=== PATIENT | male | born 1960 | race Caucasian/White ===

== ENCOUNTER → 2016-09-29 | Outpatient (CLI) | payer BC | LOC: C.PATHSPEC 11:57 | DX: D23.4 Other benign neoplasm of skin of scalp and neck (principal) ==

== ENCOUNTER → 2017-12-22 | Outpatient (CLI) | payer OTHER ==
[~2017-12-22] MED LIST: PERFLUTREN LIPID MICROSPHERE (DEFINITY) IV ONE
--- NOTE | 2017-12-22 15:50 | ECHOCARDIOGRAM REPORT ---
*NOTICE TO RECEIVING CONSTITUTION PARTY AGENCY This information is strictly Confidential and protected under [place] law. [place] law prohibits you from making any further disclosure of this information unless further disclosure is expressly permitted by the written consent of the person to whom it pertains or is authorized by law. A general authorization for the release of medical or other information is not sufficient for this purpose. Hospital accepts no responsibility if the information is made available to any other person, INCLUDING THE PATIENT. Interpretation Summary * Name: JOSE SOW Study Date: 12/22/2017 12:47 PM BP: 128/70 mmHg * Patient Location: [facility] HR: 68 * : 1960 (M/d/yyyy) Gender: Male Height: 70 in * Age: 57 yrs Ethnicity: [place] Weight: 190 lb * Ordering Physician: Brett Yanez * Referring Physician: Brett Yanez D.O. * Performed By: Zo Ge RDCS * * Reason For Study: COUGH, CARDIOMEGALY ON XRAY * BSA: 2.0 m2 * -- Conclusions -- * There is borderline concentric left ventricular hypertrophy. * Left ventricular systolic function is low normal. Procedure Details * A contrast injection of Definity was performed to improve assessment of LV function. * Contrast was injected into an intravenous site in the right arm. * One vial of Definity ultrasound contrast was diluted in normal saline to a total volume of 10 ml. A total of '1' ml of solution was administered during imaging. * Lot # [id number] of Definity utilized for procedure. * Expiration date OCTOBER 22. * The attending nurse who injected the contrast agent was ADRIEL BRYANT RN. Left Ventricle * The left ventricle is normal in size. * There is borderline concentric left ventricular hypertrophy. * Left ventricular systolic function is low normal. * Ejection Fraction = 50-55%. * The left ventricular wall motion is normal. Right Ventricle * The right ventricle is normal in size and function. * The right ventricular systolic function is normal as assessed by tricuspid annular plane systolic excursion (TAPSE) (normal >1.5 cm). Atria * The left atrial size is normal. * Right atrial size is normal. Mitral Valve * The mitral valve anatomy is normal. * Significant mitral regurgitation is absent. Tricuspid Valve * The tricuspid valve is not well visualized, but is grossly normal. * Significant tricuspid regurgitation is absent. Aortic Valve * The aortic valve is normal in structure and function. * No hemodynamically significant valvular aortic stenosis. * There is no significant aortic regurgitation. Great Vessels * The aortic root is normal size. Pericardium/Pleural * There is no pericardial effusion. MMode 2D Measurements and Calculations IVSd 1.2 cm IVSs 2.2 cm LVIDd 4.5 cm LVIDs 2.9 cm LVPWd 1.7 cm LVPWs 2.1 cm IVS/LVPW 0.72 FS 36.1 % EDV(Teich) 91.0 ml ESV(Teich) 31.0 ml EF(Teich) 65.9 % EDV(cubed) 89.3 ml ESV(cubed) 23.3 ml EF(cubed) 73.9 % % IVS thick 79.5 % % LVPW thick 25.8 % LV mass(C)d 256.5 grams LV mass(C)dI 125.6 grams/m\S\2 LV mass(C)s 282.1 grams LV mass(C)sI 138.1 grams/m\S\2 SV(Teich) 59.9 ml SI(Teich) 29.3 ml/m\S\2 SV(cubed) 66.0 ml SI(cubed) 32.3 ml/m\S\2 Ao root diam 3.7 cm Ao root area 10.6 cm\S\2 LA dimension 3.9 cm LA/Ao 1.1 LVAd ap2 29.5 cm\S\2 LVLd ap2 7.6 cm EDV(MOD-sp2) 93.2 ml EDV(sp2-el) 96.6 ml LVAs ap2 16.8 cm\S\2 LVLs ap2 6.2 cm ESV(MOD-sp2) 35.9 ml ESV(sp2-el) 38.4 ml EF(MOD-sp2) 61.5 % EF(sp2-el) 60.2 % SV(MOD-sp2) 57.3 ml SI(MOD-sp2) 28.1 ml/m\S\2 SV(sp2-el) 58.1 ml SI(sp2-el) 28.5 ml/m\S\2 Doppler Measurements and Calculations MV E max chana 77.5 cm/sec MV A max chana 64.7 cm/sec MV E/A 1.2 MV dec time 0.22 sec Ao V2 max 107.8 cm/sec Ao max PG 4.7 mmHg Ao max PG (full) 0.76 mmHg LV V1 max PG 3.9 mmHg LV V1 max 98.7 cm/sec
--- NOTE | 2017-12-23 13:03 | PULMONARY FUNCTION TEST ---
Spirometry shows a mild decrease in forced vital capacity and FEV1, with the normal FEV1/FVC ratio. This would suggest mild restriction. Repeat study done following bronchodilators showed no improvement in function. Advise clinical correlation. MTDD
== END | disposition home or self-care (01) ==
LOC: C.RC 11:15
DX: R05 Cough (principal); I51.7 Cardiomegaly

== ENCOUNTER 2018-10-03 09:04 | Inpatient (IN) ==
--- NOTE | 2018-09-18 09:35 | Anesthesiology Consultation ---
Date of Service September 18, 2018 Assessment & Plan (1) Encounter for pre-operative examination: Chart Review Chart Review: Acceptable Risk for Surgery and Patient seen in Pre Admission Testing Teaching & Discussion Pre-Anesthesia Teaching/Discussion Notes: Instructed NPO after midnight before surgery,except medications with 15 cc of water. Medication instructions provided according to the PAT guidelines. History Surgery Operation Date: 10/03/18 07:30 Proposed Procedures p Robotic Assisted Laparoscopic Radical Retropubic Prostatectomy, Possible Open, Possible Pelvic Lymph Node Dissection, Possible Suprapubic Tube Placement - Ranjit Vela MD Height/Weight Height: 5 ft 10 in Weight: 87.4 kg Allergies Allergy/AdvReac Type Severity Reaction Status Date / Time No Known Allergies Verified 09/12/18 10:00 Medications Home Medications Medication Instructions Recorded Confirmed Last Taken No Known Home Medications 09/12/18 09/12/18 Unknown Past Medical History Medical History Hiatal hernia SMALL PER 12/2017 CXR Prostate cancer DX 06/2018 Past Family History Family History Mother No problems noted. Father Skin cancer Brother Family history of thyroid cancer Brother No problems noted. Past Surgical History Surgical History History of appendectomy History of colonoscopy History of wisdom tooth extraction Past Anesthesia History No Hx of Anesthesia Complications and No Family Hx of Anesthesia Complications History of PONV No Motion Sickness Screening History of Motion Sickness: No Social History Smoking Status: Never smoker Do You Dip or Chew Tobacco: No Hx Alcohol Use: Yes alcohol intake frequency: holidays/special occasions only Hx Substance Use: No substance use type: does not use Exercise / Class Metabolic Activity II 4-5 Yardwork/Stairs/Walk up [place] Review of Systems Chronic intermittent cough x years (unchanged). Patient denies chest pain, shortness of breath, dyspnea on exertion, wheezing, palpitations. Physical Exam Vital Signs VITALS BP 113/78 P 75 TEMP 97.7 SP02 95%RA RESP 16 PHYSICAL Full neck and c-spine range of motion. Full TMJ range of motion. TMD 3 finger breaths Mallampati Score 2 Dentition: missing molars Lungs: clear throughout to auscultation Cardiac: regular rate and rhythm, no murmurs noted Spine: normal Carotid arteries: negative bruit Extremities: no edema Testing Electrocardiogram Date: 09/18/18 Findings: + NSR @ (65) Chest X-Ray Date: 12/05/17 Findings: + NAD Moderate cardiomegaly. Small fixed lateral hernia. Lungs are clear. Echocardiogram Date: 12/22/17 EF 50-55%. No RWMA. Borderline cLVH. No significant valvular disease. Laboratory Results 09/18/18 09:55 09/18/18 09:55 Blood Type O Positive 09/18/18 09:55 Antibody Screen NEGATIVE 09/18/18 09:55 Urine Color Yellow 09/19/18 07:00 Urine Appearance Clear (Clear) 09/19/18 07:00 Urine pH 5.5 (4.5-7.5) 09/19/18 07:00 Ur Specific [place] 1.009 (1.000-1.030) 09/19/18 07:00 Urine Protein Negative (Negative) 09/19/18 07:00 Urine Glucose (UA) Negative (Negative) 09/19/18 07:00 Urine Ketones Negative (Negative) 09/19/18 07:00 Urine Nitrite Negative (Negative) 09/19/18 07:00 Ur Leukocyte Esterase Negative (Negative) 09/19/18 07:00
[2018-09-18 11:52] LABS: Basophils # (auto) 0.02 K/uL (0-0.2); Basophils % (auto) 0.3 %; Eosinophils # (auto) 0.03 K/uL (0-0.5); Eosinophils % (auto) 0.4 %; Hematocrit (blood only) 47.6 % (42-52); Hemoglobin 16.1 g/dL (14.0-18.0); Immature Granulocytes # (auto) 0.02 K/uL (0.00-0.02); Immature Granulocytes % (auto) 0.3 %; Lymphocytes # (auto) 1.21 K/uL (1.2-3.4); Lymphocytes % (auto) 16.4 %; Mean Corpuscular Hgb Conc 33.8 g/dL (32-36); Mean Corpuscular Volume 82.2 fL (80-100); Mean Platelet Volume 9.2 fL (7.4-10.4); Monocytes # (auto) 0.51 K/uL (0.11-0.59); Monocytes % (auto) 6.9 %; Neutrophils # (auto) 5.57 K/uL (1.4-6.5); Neutrophils % (auto) 75.7 %; Platelet Count 212 K/uL (130-400); RDW Coefficient of Variation 13.8 % (11.5-14.5); RDW Standard Deviation 40.8 fL (36.4-46.3); Red Blood Count 5.79 M/uL (4.7-6.1); White Blood Count 7.36 K/uL (4.8-10.8)
[2018-09-18 11:59] LABS: BUN Creatinine Ratio 11.4 (10-20); Calcium 9.3 mg/dl (8.5-10.1); Creatinine Clr Calc Pharmacy 87.7 ml/min; Est GFR (African American) 101.3; Est GFR (Non-African American) 87.4; Potassium 4.2 mmol/L (3.5-5.1)
[2018-09-19 09:37] LABS: Appearance Urine Clear (Clear); Bilirubin Urine Negative (Negative); Blood Urine Negative (Negative); Color Urine Yellow; Glucose Urine UA Negative (Negative); Ketones Urine Negative (Negative); Leukocyte Esterase Urine Negative (Negative); Nitrite Urine Negative (Negative); Protein Urine Negative (Negative); Specific Gravity Urine 1.009 (1.000-1.030); Urobilinogen Urine Negative (Negative); pH Urine 5.5 (4.5-7.5)
[~2018-10-03 09:04] MED LIST changes: +CEFAZOLIN 2000MG 2,000 MG/15 ML SYR IV SCH; +HEPARIN SOD 5,000 UNIT/0.5 ML VIAL SC SCH; +LR 15ML/HR IV SCH; -PERFLUTREN LIPID MICROSPHERE (DEFINITY) IV ONE
[2018-10-03] MEDS ORDERED: fentaNYL citrate 100 MCG/2 ML VIAL ONE (09:17)
[2018-10-03] MEDS ORDERED: MIDAZOLAM HCL 1 MG/ML 2ML VIAL ONE (09:17)
--- OUTSIDE RECORDS SUMMARY | 2018-10-03 09:40 | External Medical Summary | Continuity of Care Document ---
:1960 Author Name Yamila Moralse, Provider Address Unavailable Unavailable , Care Team Providers Name Role Phone Eliud Kemp [email or web address] Kevin [email or web address] EAMON [email or web address] JR Unavailable Unavailable Unavailable Unavailable Unavailable Problems Acute appendicitis (540.9) (K35.80) Benign prostatic hyperplasia (600.00) (N40.0) Elevated PSA (790.93) (R97.20) Prostate cancer (185) (C61) Allergies and Adverse Reactions No Known Drug Allergies (Allergy) Medications Vitamin B-12 TABS Refills: 0 Ciprofloxacin HCl - 500 MG Oral Tablet; TAKE 1 TABLET EVERY 12 HOURS DAILY. Andrew Kemp Start: 11-May-2018 Quantity: 6 Refills: 0 Procedures Procedures not documented Immunizations Immunizations not documented Family History Brother Family history of malignant neoplasm of thyroid (V16.8) (Z80 .8) Status: Active Mother Family history of hypertension (V17.49) (Z82.49) Status: Act trina Social History - Smoking Status Former smoker Plan of Treatment Planned Encounters Appointment; Kevin Vela M.D. Start: 18-Oct-2018 10:30 Request Planned Observations Planned Goals not documented Results Urine Culture 19-Sep-2018 7:00 URINE CULTURE CATH ORDERED P ROCEDURE : Urine Culture; Speciment : Urine,Clean Catch Urine Culture : Coag ne gative Staphylococcus [place] Count\ S\[place] Count 20,000 S\S\Sens Sensitivities to Follow S = SENS ITIVE I = INTERMEDIATE R = RESISTANT ORGANISM : Positive Combo 33 Daptomycin : S <=0.5Nitrofurantoin : S <=32Oxacillin : S <=0.25 Tetracycline : I 8Trimethoprim/Sulfameth oxazole : S <=0.5/9.5Vancomycin : S 2 Encounters Appointment; Stacey Gray CRNP 03-Oct-2018 8:40 Encounter Diagnosis: Problem not documented Appointment; Kevin Vela M.D. 03-Oct-2018 8:00 Encounter Diagnosis: Problem not documented Appointment; Kevin Vela M.D. 18-Sep-2018 8:30 Encounter Diagnosis: Problem not documented Appointment; Kevin Vela M.D. 21-Aug-2018 8:15 Encounter Diagnosis: Problem not documented Appointment; Eliud Kemp M.D. 20-Jul-2018 9:30 Encounter Diagnosis: Problem not documented Appointment; Eliud Kemp M.D. 03-Jul-2018 9:45 Encounter Diagnosis: Problem not documented Appointment; Urology, US probe only 03-Jul-2018 9:45 Encounter Diagnosis: Problem not documented Appointment; Urology, Room 8 03-Jul-2018 9:30 Encounter Diagnosis: Problem not documented Appointment; Eliud Kemp M.D. 11-May-2018 9:00 Encounter Diagnosis: Problem not documented Appointment; Eliud Kemp M.D. 28-Feb-2018 9:30 Encounter Diagnosis: Problem not documented Appointment; Kevin Vela M.D. 18-Oct-2018 10:30 Encounter Diagnosis: Problem not documented
[2018-10-03] MEDS ORDERED: PROPOFOL IV EMULSION 10 MG/ML 20 ML VIAL IV ONE (10:39)
[2018-10-03] MEDS ORDERED: PHENYLEPHRINE 100MCG/ML 5ML SYR ONE (10:39)
[2018-10-03] MEDS ORDERED: ePHEDrine sulfate 50 MG/ML SYR ONE (10:39)
[2018-10-03] MEDS ORDERED: LARYING-O-JET KIT (LTA) ONE (10:39)
[2018-10-03] MEDS ORDERED: LIDOCAINE HCL 2% 2 ML VIAL/AMP(20MG/ML) INFIL ONE (10:39)
[2018-10-03] MEDS ORDERED: CISATRACURIUM BESYLATE IV SOLN 2 MG/ML 10 ML VIAL IV ONE (10:39)
[2018-10-03] MEDS ORDERED: GLYCOPYRROLATE 0.2 MG/ML VIAL ONE (10:39)
[2018-10-03] MEDS ORDERED: NEOSTIGMINE METHYLSULFATE 5 MG/5 ML SYR ONE (10:39)
[2018-10-03] MEDS ORDERED: DEXAMETHASONE SOD INJ 4 MG/ML VIAL ONE (10:39)
[2018-10-03] MEDS ORDERED: ONDANSETRON INJ 2 MG/ML 2 ML VIAL ONE (10:39)
--- NOTE | 2018-10-03 11:17 | History & Physical Bridge Note ---
Date of Service October 03, 2018 History & Physical Bridge Note I have examined the patient, reviewed the History & Physical and in the interval since the performance of the History & Physical I have noted the following changes of clinical significance: no changes noted
[2018-10-03] MEDS ORDERED: BUPIVACAINE 0.5 % 5 MG/1 ML MPF 30ML VIAL ONE (11:24)
[2018-10-03] MEDS ORDERED: BELLADONNA/OPIUM SUPP 60 MG SUPP PR ONE (12:17)
[2018-10-03] MEDS ORDERED: BELLADONNA/OPIUM SUPP 60 MG SUPP PR PRN (12:34)
[2018-10-03] MEDS ORDERED: SURGICEL ABSORB HEMOSTAT 2IN X 14IN TOP ONE (12:34)
[2018-10-03] MEDS ORDERED: FLOSEAL HEMOSTATIC MATRIX 10ML TOP ONE (12:34)
[2018-10-03] MEDS ORDERED: HYDROmorphone INJ 2 MG/ML SYR/VIAL ONE (12:39)
--- NOTE | 2018-10-03 15:23 | Operative Report ---
Post Operative Report Pre & Post Diagnosis Operation Date: 10/03/18 10:30 Pre-Op Diagnosis: Prostate Cancer Post-Op Diagnosis: Prostate Cancer Procedure Operation Date: 10/03/18 10:30 Actual Procedures p Robotic-Assisted Laparoscopic Radical Retropubic Prostatectomy, Pelvic Lymph Node Dissection - Ranjit Vela MD Surgeon Kevin Vela MD Offset Press Operator Apprentice Stacey Gray Estimated Blood Loss 100 Findings Consistent with Post-Op Diagnosis Specimens 1. Periprostatic fat 2. Prostate and Seminal Vesicles 3. Left pelvic lymph nodes 4. Right pelvic lymph nodes Description of Procedure The patient was identified in the preoperative holding area, appropriate informed consents were reviewed and completed, and he was transported to the operating suite. Subcutaneous heparin was administered in the pre-operative holding area. Upon arrival in the operating suite, he received appropriate antibiotics and general anesthesia. He was positioned in dorsal lithotomy, a B&O suppository was inserted after digital rectal exam, and he was prepped and draped in standard fashion. A Pino catheter was inserted in the sterile field. A Veress needle was passed per umbilicus with uniform insufflation of the abdomen to 15mmHg. He was placed in steep Trendelenburg position. A periumbilical incision was then made to accommodate a 12mm Visiport with 10mm 0degree laparoscope. Inspection of the abdomen was carried out, and there was no evidence of traumatic entry or injury secondary to the Veress needle. After confirming a clear anterior abdominal wall, ports were subsequently placed in standard robotic prostatectomy fashion without incident. To begin the robotic portion of the case, the left lateral aspect of the sigmoid was mobilized off of the left pelvic side wall to allow the pouch of Evan to be appropriately visualized. I then made an incision in the pouch of Evan, overlying the seminal vesicles. Both SVs as well as the ampullae of the vasa were entirely dissected, with the vasa transected 3cm from the prostate. The medial umbilical ligaments were then controlled with bipolar electrocautery just inferior to the umbilicus. Following cauterization, they were divided utilizing monopolar cautery. A peritoneal incision was carried from this location to the medial aspect of the internal inguinal rings bilaterally with care to avoid opening through the ring. This incision was concluded when the vas deferens was reached. Dissection of the bladder and prostate off of the posterior aspect of the pubic arch was completed allowing full visualization of the prostate. The fat overlying the prostate was removed en bloc and passed off the table as a specimen labeled "periprostatic fat". The endopelvic fascia was cleared during this portion of the procedure, and subsequently opened - first on the right and then the left. The incision through the endopelvic fascia began near the prostate-bladder junction and was carried to the apex with extreme care to preserve all lateral levator musculature as well as the periurethral musculature and sphincter complex. The puboprostatic ligaments were thinned sl ightly bilaterally before placing a 0-Vicryl figure of 8 stitch around the DVC. The lymph node dissection was then conducted. External iliac vessels were identified on the pelvic side wall. The packet of fat and lymphatic tissue that resides just under the iliac vein was elevated and off of the vein with a split and roll technique. The packet was dissected laterally to the circumflex vein and distally to the obturator nerve which was preserved. The proximal aspect of the packet was carried towards the bifurcation of the iliac vessels. A combination of monopolar and bipolar cautery were used to assist with control. Clips were placed at the proximal and distal aspects of the packet prior to transection. After completing the dissection on both sides, the packets were collected and passed off of the table as specimens labeled "pelvic lymph nodes". My attention then returned to the prostate, with identification of the bladder neck aided by gentle traction on the Pino catheter and lateral to medial pressure at the presumed level of the bladder neck with the robotic instruments. An anterior cystotomy was made, the Pino balloon deflated and the catheter guided through the incision to allow anterior retraction. I attempted to preserve maximal bladder neck musculature as I circumferentially dissected around the bladder neck. After incision through the posterior aspect of the mucosa, the dissection was carried through detrusor muscle until the bilateral ampullae of the vasa were identified. The previously dissected vasa and SVs were brought through the incision and used to elevated the prostate anteriorly. A posterior plane behind the prostate was then developed - splitting Denonvilliers's fascia. This dissection was carried as far as possible towards the apex as well as far as possible laterally. An incision in the lateral prostatic fascia was then made bilaterally to facilitate control of the vascular pedicles. The pedicles were each controlled with a series of Weck clips. The neurovascular bundles were identified with an aggressive nerve sparing on the left and a more guarded approach on the right. The apical attachments of the prostate were remaining at that stage. The DVC was divided with bipolar electrocautery. Paulette-prostatic tissue incised with sharp dissection and monopolar cautery. Maximal urethral length was preserved before dividing the urethra sharply. The prostate was entirely freed at that point, and collected in an EndoCatch bag before being moved out of the field of vision. Hemostasis was confirmed and anastomosis of the bladder and urethra was completed utilizing a double armed V- Lock stitch. A new Pino catheter was inserted and the anastomosis tested with irrigation. There was no evidence of leak. FloSeal coagulant was placed around the anastomosis. A juan c style stitch was placed bilaterally to marsupialize the area of the lymph node dissections. The robot was undocked, the specimen extracted through expansion of the paulette- umbilical camera port. The fascia was closed with a series of 0-PDS figure of 8 stitches. The right data control assistant port was closed in two layers - with a figure of 8 0-Vicryl to reapproximate the fascia followed by 4-0 Monocryl to close the skin. Monocryl was used to close all other skin incisions. All wounds were dressed with Dermabond. The case was concluded and the patient taken to the PACU in stable condition. Stacey Gray assisted throughout the surgery from incision to closure I attest to the content of the Intraoperative Record and any orders documented therein. Any exceptions are noted below.
[2018-10-03 15:33] LABS: Basophils # (auto) 0.01 K/uL (0-0.2); Basophils % (auto) 0.1 %; Eosinophils # (auto) 0.01 K/uL (0-0.5); Eosinophils % (auto) 0.1 %; Hematocrit (blood only) 44.8 % (42-52); Hemoglobin 15.4 g/dL (14.0-18.0); Immature Granulocytes # (auto) 0.03 K/uL (0.00-0.02); Immature Granulocytes % (auto) 0.3 %; Lymphocytes # (auto) 0.83 K/uL (1.2-3.4); Lymphocytes % (auto) 7.6 %; Mean Corpuscular Volume 81.8 fL (80-100); Mean Platelet Volume 8.8 fL (7.4-10.4); Monocytes # (auto) 0.04 K/uL (0.11-0.59); Monocytes % (auto) 0.4 %; Neutrophils # (auto) 9.94 K/uL (1.4-6.5); Neutrophils % (auto) 91.5 %; Platelet Count 193 K/uL (130-400); RDW Coefficient of Variation 13.6 % (11.5-14.5); Red Blood Count 5.48 M/uL (4.7-6.1); White Blood Count 10.86 K/uL (4.8-10.8)
[2018-10-03] MEDS ORDERED: PROMETHAZINE HCL 12.5 MG in SODIUM CHLORIDE 0.9% 50 ML IV PRN (15:36)
[2018-10-03] MEDS ORDERED: ATROPINE SULFATE 0.1 MG/ML 10ML SYR IV PRN (15:36)
[2018-10-03] MEDS ORDERED: fentaNYL citrate 100 MCG/2 ML VIAL IV PRN (15:36)
[2018-10-03] MEDS ORDERED: FLUMAZENIL 0.1 MG/1 ML 10 ML VIAL IV PRN (15:36)
[2018-10-03] MEDS ORDERED: NALOXONE HCL 0.4 MG/1 ML VIAL/CARP IV PRN (15:36)
[2018-10-03] MEDS ORDERED: LABETALOL HCL IV 5 MG/ML 20ML IV PRN (15:36)
[2018-10-03] MEDS ORDERED: ePHEDrine sulfate 50 MG/ML AMP IV PRN (15:36)
[2018-10-03] MEDS ORDERED: ONDANSETRON INJ 2 MG/ML 2 ML VIAL IV PRN (15:36)
[2018-10-03 15:38] LABS: Mean Corpuscular Hgb Conc 34.4 g/dL (32-36)
[2018-10-03 15:51] LABS: Calcium 7.9 mg/dl (8.5-10.1); Creatinine Clr Calc Pharmacy 82.5 ml/min; Est GFR (African American) 94.1; Est GFR (Non-African American) 81.2; Potassium 3.9 mmol/L (3.5-5.1)
[2018-10-03] MEDS ORDERED: KETOROLAC TROMETHAMINE 15 MG/ML VIAL IV PRN (16:40)
[2018-10-03] MEDS ORDERED: MoRPHine SULFATE 4 MG/ML 1 ML CARP\\VIAL IV PRN (16:40)
[2018-10-03] MEDS ORDERED: MoRPHine SULFATE 2 MG/ML CARP IV PRN (16:40)
[2018-10-03] MEDS: LACTATED RINGER'S 1,000 ML IV SCH (17:52)
[2018-10-03 17:59] LABS: Partial Thromboplastin Ratio 0.9; Partial Thromboplastin Time 24.8 Seconds (21.0-31.0); Prothrombin Time 10.6 Seconds (9.0-12.0)
--- NOTE | 2018-10-03 18:50 | Anesthesiology Progress Note ---
Date of Service October 03, 2018 Anesthesia Post Procedure Vital Signs Vital Signs: Temp Pulse Pulse Pulse Resp BP BP 10/03/18 18:30 36.4 C L 90 16 127/79 10/03/18 17:30 36.4 C L 99 H 20 126/83 10/03/18 17:00 36.1 C L 85 16 133/79 10/03/18 16:30 36.4 C L 86 18 130/82 10/03/18 16:05 36.3 C L 82 14 142/91 H 10/03/18 15:55 91 H 16 133/93 10/03/18 15:45 91 H 16 133/88 10/03/18 15:35 91 H 21 138/90 10/03/18 15:25 77 18 117/80 10/03/18 15:19 36.2 C L 97 H 18 125/78 10/03/18 09:56 36.8 C 81 16 137/95 Pulse Ox 10/03/18 18:30 97 10/03/18 17:30 97 10/03/18 17:00 94 10/03/18 16:30 97 10/03/18 16:05 96 10/03/18 15:55 94 10/03/18 15:45 94 10/03/18 15:35 95 10/03/18 15:25 98 10/03/18 15:19 94 10/03/18 09:56 96 Transfer of Care Handoff Completed per policy Notes Mental Status: alert / awake / arousable Patient Amnestic to Procedure: Yes Nausea / Vomiting: adequately controlled Pain: adequately controlled Airway Patency, RR, SpO2: stable & adequate BP & HR: stable & adequate Hydration State: stable & adequate Anesthetic Complications: no major complications apparent and Pt Satisfied with anesthetic care
[2018-10-03] MEDS: CEFAZOLIN 2000MG 2,000 MG/15 ML SYR IV SCH (21:04)
[2018-10-03] MEDS: HEPARIN SOD 5,000 UNIT/0.5 ML VIAL SQ SCH (21:14)
[2018-10-04] MEDS: LACTATED RINGER'S 1,000 ML IV SCH ×3 (00:01→16:54)
[2018-10-04] MEDS: CEFAZOLIN 2000MG 2,000 MG/15 ML SYR IV SCH (04:01)
[2018-10-04 07:04] LABS: Eosinophils # (auto) 0.01 K/uL (0-0.5); Eosinophils % (auto) 0.1 %; Hematocrit (blood only) 44.1 % (42-52); Hemoglobin 14.9 g/dL (14.0-18.0); Immature Granulocytes # (auto) 0.03 K/uL (0.00-0.02); Immature Granulocytes % (auto) 0.2 %; Lymphocytes # (auto) 0.89 K/uL (1.2-3.4); Lymphocytes % (auto) 7.1 %; Mean Corpuscular Hgb Conc 33.8 g/dL (32-36); Mean Corpuscular Volume 81.8 fL (80-100); Mean Platelet Volume 8.9 fL (7.4-10.4); Monocytes # (auto) 0.92 K/uL (0.11-0.59); Monocytes % (auto) 7.4 %; Neutrophils # (auto) 10.65 K/uL (1.4-6.5); Neutrophils % (auto) 85.2 %; Platelet Count 212 K/uL (130-400); RDW Coefficient of Variation 13.6 % (11.5-14.5); RDW Standard Deviation 40.7 fL (36.4-46.3); Red Blood Count 5.39 M/uL (4.7-6.1)
[2018-10-04 07:41] LABS: BUN Creatinine Ratio 12.7 (10-20); Calcium 8.2 mg/dl (8.5-10.1); Creatinine Clr Calc Pharmacy 84.2 ml/min; Est GFR (African American) 96.4; Est GFR (Non-African American) 83.2; Potassium 4.4 mmol/L (3.5-5.1)
--- NOTE | 2018-10-04 07:45 | Urology Progress Note ---
Date of Service October 04, 2018 Assessment & Plan (1) Prostate cancer: Prostate ca s/p RALP - ambulate - clears - HL IVF later today - consider diet advance - likely d/c home tomorrow with bonilla Subjective modest pain, but no other issues no nausea minimal ambulation yet Physical Exam Physical Exam: AFVSS abd soft - incisions appropriate urine clear Results & Data Vital Signs (Past 12 Hours) Vital Signs Temp Pulse Resp BP BP Pulse Ox 10/04/18 03:00 36.7 C 99 H 16 124/79 92 10/03/18 23:34 36.4 C L 100 H 16 126/82 92
[2018-10-04] MEDS: HEPARIN SOD 5,000 UNIT/0.5 ML VIAL SQ SCH ×2 (09:04→20:26)
--- NOTE | 2018-10-04 10:18 | Anesthesiology Progress Note ---
Date of Service October 04, 2018 Anesthesia Post Procedure Vital Signs Vital Signs: Temp Pulse Pulse Resp BP BP Pulse Ox 10/04/18 07:54 36.4 C L 97 H 19 123/81 93 10/04/18 03:00 36.7 C 99 H 16 124/79 92 10/03/18 23:34 36.4 C L 100 H 16 126/82 92 10/03/18 19:30 36.4 C L 92 H 16 113/76 93 10/03/18 18:30 36.4 C L 90 16 127/79 97 10/03/18 17:30 36.4 C L 99 H 20 126/83 97 10/03/18 17:00 36.1 C L 85 16 133/79 94 10/03/18 16:30 36.4 C L 86 18 130/82 97 10/03/18 16:05 36.3 C L 82 14 142/91 H 96 10/03/18 15:55 91 H 16 133/93 94 10/03/18 15:45 91 H 16 133/88 94 10/03/18 15:35 91 H 21 138/90 95 10/03/18 15:25 77 18 117/80 98 10/03/18 15:19 36.2 C L 97 H 18 125/78 94 Pain Intensity Medial Abdomen: Pain Intensity: 5 Notes Mental Status: alert / awake / arousable and participated in evaluation Patient Amnestic to Procedure: Yes Nausea / Vomiting: adequately controlled Pain: adequately controlled Airway Patency, RR, SpO2: stable & adequate BP & HR: stable & adequate Hydration State: stable & adequate Anesthetic Complications: no major complications apparent
[2018-10-04] MEDS: ACETAMINOPHEN 325 MG TAB PO PRN (10:41)
[2018-10-04] MEDS: OXYCODONE HCL IR 5 MG TAB (IMMEDIATE RELEASE) PO PRN ×2 (16:55→23:39)
[2018-10-05] MEDS: LACTATED RINGER'S 1,000 ML IV SCH ×2 (00:42→08:11)
[2018-10-05] MEDS: ONDANSETRON INJ 2 MG/ML 2 ML VIAL IV PRN ×3 (03:31→17:15)
[2018-10-05] MEDS ORDERED: PROMETHAZINE HCL 25 MG TAB PO ONE (05:05)
[2018-10-05 08:07] LABS: Basophils # (auto) 0.01 K/uL (0-0.2); Basophils % (auto) 0.1 %; Hematocrit (blood only) 44.8 % (42-52); Hemoglobin 15.4 g/dL (14.0-18.0); Immature Granulocytes # (auto) 0.03 K/uL (0.00-0.02); Immature Granulocytes % (auto) 0.3 %; Lymphocytes # (auto) 0.88 K/uL (1.2-3.4); Lymphocytes % (auto) 8.1 %; Mean Corpuscular Hgb Conc 34.4 g/dL (32-36); Mean Corpuscular Volume 81.6 fL (80-100); Mean Platelet Volume 9.1 fL (7.4-10.4); Monocytes # (auto) 1.09 K/uL (0.11-0.59); Monocytes % (auto) 10.1 %; Neutrophils # (auto) 8.79 K/uL (1.4-6.5); Neutrophils % (auto) 81.4 %; Platelet Count 194 K/uL (130-400); RDW Coefficient of Variation 13.7 % (11.5-14.5); RDW Standard Deviation 41.2 fL (36.4-46.3); Red Blood Count 5.49 M/uL (4.7-6.1)
[2018-10-05] MEDS: HEPARIN SOD 5,000 UNIT/0.5 ML VIAL SQ SCH ×2 (08:11→20:58)
[2018-10-05 08:37] LABS: BUN Creatinine Ratio 11.9 (10-20); Calcium 8.4 mg/dl (8.5-10.1); Creatinine Clr Calc Pharmacy 96.7 ml/min; Est GFR (Non-African American) 95.8
--- NOTE | 2018-10-05 08:58 | Urology Progress Note ---
Date of Service October 05, 2018 Assessment & Plan (1) Prostate cancer: 58yo M POD #2 s/p RALP with BLND, possible post op ileus. Some abdominal distention, nausea, large emesis this AM. Concern for small post op ileus. Will not advance diet for now, keep on clears. If he has another emesis, will make NPO and allow for bowel rest. Continue IVFs. Encourage ambulation, chewing gum while awake. We will continue to monitor, will keep inpatient today and likely tomorrow depending on progress. Pt verbalizes understanding. Subjective 58yo M POD #2 s/p RALP with BLND. VSS, afebrile. Some nausea through the second half of the evening, abdomen feeling "full". Sat up to chair this AM and had large belch and ~300cc brown liquid emesis just prior to me entering room. Nurse at bedside, administering zofran. Reporting significant generalized, lower abdominal pain. Abdomen does feel distended today. Tolerating catheter well, denies suprapubic pain or bladder spasms. Bonilla draining clear yellow. Awaiting AM labs. Review of Systems Review of Systems: All systems reviewed & are unremarkable except as noted in HPI & below Physical Exam Physical Exam: A&Ox3 RRR abd distended, firm bonilla draining clear yellow. no edema Results & Data Vital Signs (Past 12 Hours) Vital Signs Temp Pulse Resp BP Pulse Ox 10/05/18 07:36 36.7 C 99 H 16 137/92 90 10/04/18 23:38 36.9 C 100 H 16 141/83 H 93
[2018-10-06 05:50] LABS: Basophils # (auto) 0.02 K/uL (0-0.2); Basophils % (auto) 0.2 %; Eosinophils # (auto) 0.05 K/uL (0-0.5); Eosinophils % (auto) 0.5 %; Hematocrit (blood only) 42.1 % (42-52); Hemoglobin 14.4 g/dL (14.0-18.0); Immature Granulocytes # (auto) 0.03 K/uL (0.00-0.02); Immature Granulocytes % (auto) 0.3 %; Lymphocytes # (auto) 1.47 K/uL (1.2-3.4); Lymphocytes % (auto) 15.7 %; Mean Corpuscular Hgb Conc 34.2 g/dL (32-36); Mean Corpuscular Volume 82.1 fL (80-100); Monocytes # (auto) 0.96 K/uL (0.11-0.59); Monocytes % (auto) 10.2 %; Neutrophils # (auto) 6.84 K/uL (1.4-6.5); Neutrophils % (auto) 73.1 %; Platelet Count 177 K/uL (130-400); RDW Coefficient of Variation 13.5 % (11.5-14.5); RDW Standard Deviation 41.1 fL (36.4-46.3); Red Blood Count 5.13 M/uL (4.7-6.1); White Blood Count 9.37 K/uL (4.8-10.8)
[2018-10-06 06:16] LABS: BUN Creatinine Ratio 12.7 (10-20); Creatinine Clr Calc Pharmacy 90.5 ml/min; Est GFR (African American) 105.2; Est GFR (Non-African American) 90.8; Potassium 4.1 mmol/L (3.5-5.1)
[2018-10-06] MEDS: ACETAMINOPHEN 325 MG TAB PO PRN (08:00)
[2018-10-06] MEDS: HEPARIN SOD 5,000 UNIT/0.5 ML VIAL SQ SCH (08:02)
--- NOTE | 2018-10-06 09:38 | Urology Progress Note ---
Date of Service October 06, 2018 Assessment & Plan (1) Prostate cancer: 58yo M POD #3 s/p RALP with BLND. Progressing well this AM Encouraged increased ambulation and use of IS. Pt feels for discharge, plan for after lunch when ride available. Discharge with catheter, pt does not feel he will need a leg bag. Expected clinical course and discharge instructions reviewed, pt verbalizes understanding. All questions answered. Subjective 58yo M POD #3 s/p RALP with BLND. Afebrile, VSS. Doing much better this AM, sitting up in chair comfortable. Pain controlled with PO options. Slight delayed nausea after regular dinner last evening but no emesis. Tolerated breakfast this AM without issue. Ambulated a couple times yesterday. A few small BMs and flatus yesterday without discomfort. Labs reviewed - stable. Review of Systems Review of Systems: All systems reviewed & are unremarkable except as noted in HPI & below Physical Exam Physical Exam: A&Ox3 RRR abd slightly firm but improved from yesterday. nontender. incisions c/d/i Results & Data Vital Signs (Past 12 Hours) Vital Signs Temp Pulse Pulse Resp BP Pulse Ox 10/06/18 08:21 36.5 C 68 16 114/84 95 10/05/18 23:10 36.4 C L 89 16 115/76 93
--- NOTE | 2018-10-13 07:22 | Discharge Summary ---
Date of Service October 13, 2018 Admission HPI Per Admitting Provider Patient admitted for robotic prostatectomy secondary to recent prostate cancer diagnosis Principal Diagnosis Prostate cancer Discharge Data Allergies Allergy/AdvReac Type Severity Reaction Status Date / Time No Known Allergies Verified 10/03/18 09:55 Procedures Performed Operation Date: 10/03/18 10:30 Actual Procedures p Robotic-Assisted Laparoscopic Radical Retropubic Prostatectomy, Pelvic Lymph Node Dissection - Ranjit Vela MD Hospital Course (1) Prostate cancer: Patient was admitted for robotic prostatectomy for definitive treatment of his prostate cancer, in summary, he tolerated the procedure extremely well as dictated previously in the operative report. Postoperatively he progressed appropriately, he did not feel comfortable going home on postoperative day 1 as he lives alone, and he ended up staying until postoperative day 2. At that time he was in stable condition and discharged home without issue. Total Time Total Time Spent Total Time Spent (In Minutes): 15 Total Time Includes: Examination of the Patient and Discharge Planning Discharge Plan Discharge Items Patient Disposition: Home - Home Health Services Reason For Visit: Prostate Cancer Discharge Diagnosis: Prostate Cancer Condition: Good Discharge Goals: Diagnostic testing, Learn about illness, Prevent disease and Therapeutic intervention Activity: Per 'Additional Instructions' section Activity Comment: Walking and stairs in your home are okay Lifting: No more than 10 pounds Bathing Comment: Okay to shower tomorrow, no tub baths. Please do not pick at surgical glue. Sexual Activity: Wait until after follow-up appointment Exercise/Sports: Rest today and Wait until after follow-up appointment Driving/Machine Use: Resume 1 day after discharge Driving/Machine Use Comment: Please do not drive while taking prescription pain medication. Non-emergency contact: Urologist Call non-emergency contact if: you have any medication questions, your pain is not controlled, your pain is unusual for you, your pain is concerning for you and your temperature is above 101 Follow-up/Referrals: Ranjit Vela MD [Physician] - 10/18/18 10:30 am (10/10/18 @ 11 am - [facility] [place] U[facility] Nursing visit for catheter removal (please start antibiotic the day before). 10/17/18 @ 11 am - [facility] [place] Urology Dr Vela ) Brett Yanez Jr, DO [Primary Care Provider] - Diet: Regular Addtl Provider Instructions: Please take all medications as prescribed and keep all follow-ups as scheduled. Please call our office at [phone] with any questions, concerns or need to reschedule appointments for any reason. We are happy to assist you. 10/10/18 at 11am [facility] [place] Urology nursing visit for cath removal. We have sent an antibiotic to your pharmacy of choice. Lisa moreno begin antibiotic as prescribed the day BEFORE your scheduled catheter removal at [facility] [place] [facility]. Please continue antibiotic every 12 hours through the day AFTER your voiding trial. Activity: We recommend having someone with you for the first few days after surgery to help care for you. For the first 2 weeks after surgery, we would like you to get up and walk around your house. However, we recommend limit physical activity that would increase your heart rate. This will allow your body to rest and heal. Take naps if you feel tired. Don't lift anything heavier than 10 pounds, mow the law or ride a bicycle until your follow-up appointment. Please avoid long car rides. Home Care: Unless directed otherwise, drink 6 to 8 glasses of water a day (enough to keep your urine light colored). This will also help keep a healthy flow of urine. We recommend using a stool softener for the first two weeks to avoid constipation. [place] Catheter Care: Keep the catheter well secured with either a leg back or leg strap with large bag. Empty your bag when it's about half full. You may notice some blood in the bag. This is normal after surgery and while the catheter is in place. Use mild soap (such as Dove or Dial) and water to wash the catheter and the head of your penis daily, or more frequently if needed. Return to your normal diet, we encourage good protein intake to promote healing. You may shower as normal. Please avoid tub baths or soaking until catheter removed and incisions well healed. Wearing sweat pants while you have the catheter is recommended, they will be more comfortable. Follow-up Your follow up appointments for having your catheter removed, and follow up with your physician should already be scheduled. If you have any questions regarding this, please contact our office. Your final pathology report will be discussed at your physician follow-up appointment. Call [facility] [place] [facility] at [phone] right away if you have any of the following: Chest pain or trouble breathing (call 911 or go to the hospital) Fever of 101F or higher, uncontrolled vomiting Heavy bleeding, clots, or bright red blood from the catheter Catheter that falls out or stops draining Foul-smelling discharge from your catheter Redness, swelling, warmth, or increased pain at your incision site Drainage, pus, or bleeding from your incision Prescriptions: New ciprofloxacin HCl 500 mg tablet 500 mg PO BID Qty: 6 RF: 0 docusate sodium [Colace] 100 mg capsule 100 mg PO BID Qty: 60 RF: 0 acetaminophen-codeine [Tylenol-Codeine #3] 300-30 mg tablet 1 tab PO TID PRN (Reason: pain) Qty: 14 RF: 0 No Action No Known Home Medications RF: 0 Stand-Alone Forms: [facility]/Other Patient Handouts: Catheter Bag Urinary Empty Clean, Leg Bag Care Dc Discharge Orders: Discharge Order (Routine); Ordered 10/06/18 Ordered By: Stacey Gray Admission Data Admit Date/Time: 10/03/18 15:21 Attending Provider: Ranjit Vela Admit Provider: Ranjit Vela Primary Care Provider: Brett Yanez Jr Other Providers: Home,Nursing Agency Service: Surgical Services Other Interventions: Discharge Summary Assessment (RN) Last Done: 10/06/18 13:10 Pending Studies at Discharge: Yes Studies:: pathology results DC Date/Time DO NOT enter until pt leaves facility: 10/06/18 14:06
== END 2018-10-06 14:06 | disposition home health service (06) | DRG 708 ==
LOC: ASU 09:04 → 3N 15:21